=== PATIENT | male | born 1960 ===

== ENCOUNTER 2020-11-25 21:30 | Emergency (ER) | payer MEDICARE, OTHER ==
[~2020-11-25] VITALS: Ht 177.8 cm; Wt 81.7 kg
[2020-11-26] MEDS ORDERED: IBUP600 PO (05:30)
[2020-11-26] MEDS ORDERED: DICLOFENAC SOD100 GM TOP (05:30)
== END 2020-11-25 23:52 | disposition left against medical advice (07) ==
LOC: ER 21:30
DX: M25.552 Pain in left hip (principal); Z53.21 Procedure and treatment not carried out due to patient leaving prior to being seen by health care provider
CPT/HCPCS: 99283

== ENCOUNTER 2020-11-26 02:10 | Emergency (ER) | payer MEDICARE, OTHER ==
[~2020-11-26] VITALS: Ht 182.9 cm; Wt 79.4 kg
[2020-11-26] MEDS ORDERED: IBUP600 PO (05:30)
[2020-11-26] MEDS ORDERED: DICLOFENAC SOD100 GM TOP (05:30)
== END 2020-11-26 05:43 | disposition home or self-care (01) ==
LOC: ER 02:10
DX: M25.552 Pain in left hip (principal); G89.29 Other chronic pain
CPT/HCPCS: 96372; 99282-25; J1885